=== PATIENT | female | born 1990 | race Caucasian/White ===

== ENCOUNTER 2020-07-23 01:17 | Outpatient (CLI) | payer BC, OTHER, SELFPAY ==
[2020-07-23 18:46] LABS: SARS-CoV-2 RNA PCR Negative
== END 2020-07-23 01:18 | disposition home or self-care (01) ==
LOC: ANHCOVIDDT 01:19
PROVIDERS: PCP Family Medicine; Visit Provider Obstetrics & Gynecology
DX: Z01.812 Encounter for preprocedural laboratory examination (principal); Z20.822 Contact with and (suspected) exposure to COVID-19
CPT/HCPCS: C9803; U0003; U0005

== ENCOUNTER 2020-07-26 00:47 | Day surgery (SDC) | payer BC, SELFPAY ==
[2020-07-22 13:07] VITALS: BMI 26.6
--- NOTE | 2020-07-25 11:57 | WPDANESEPPF ---
Anes - Initial Pre Proc Eval Procedure: Operation Date: 07/26/20 13:00 Proposed Procedures p Suction Dilation And Curettage - Jc Avila MD Date/Time: 07/25/20 11:57 Surgeon: Jc Avila MD Pre Op Diagnosis: Missed AB Patient Data Age: 30 Gender: F Height: 1.73 m Weight: 79.4 kg Allergies Allergy/AdvReac Type Severity Reaction Status Date / Time No Known Allergies Allergy Unverified 07/26/20 11:04 Home Medications Medication Instructions Recorded Confirmed Type vit no.[id number] 1 tablet PO DAILY 07/26/20 07/26/20 History [Classic ] Patient hx anesthesia problems: none Family hx anesthesia problems: none PMFSH Past Medical History Medical History (Updated 07/25/20 @ 23:11 by Jc Avila MD) Anxiety Overweight (BMI 25.0-29.9) Surgical History Surgical History History of delivery Social History Social History Smoking status: Never smoker Alcohol intake: current Drinks per week: 2 Living arrangements: with family Spiritual care concerns: No Anes - Eval Final PreProcedure Day of Procedure 07/25/20 11:57 Patient weight: overweight Heart: regular rate and rhythm Lungs: clear to auscultation and normal air movement Airway: Mallampati scale class II Neurological: alert and oriented Last oral intake: >/= 8 hours ASA classification: II Emergent: no Anesthetic plan: proceed Anesthesia type and monitoring: general GIVS and LMA Informed Consent: The patient's anesthetic plan and its attendant risks and benefits were discussed with the patient/family/POA. Questions were solicited and answers provided to the satisfaction of the patient/family/POA.
--- NOTE | 2020-07-25 23:04 | P.HP_ITS ---
H&P: HPI History of Present Illness Date/Time: 07/25/20 23:04 Chief Complaint: Miscarriage Narrative: 30 y/o with LMP 06/26/20, and this was about a week late. She did not experience any full flow, so she had an hCG level on 07/07/20. This was 30, with a progesterone value of only 0.19. On 07/11, her hCG was 26.5. On 07/13/20 it was 34. On 07/18/20 it was 42.5. And on 07/20/20 it was 57.8. She has had some intermittent bright red bleeding. She has no cramping. Her blood type is Apos. Because of her abnormally rising hCG levels, I have offered a suction D&C. Review of Systems Review of Systems: All systems reviewed & are unremarkable except as noted in HPI and below PMFSH Past Medical History Medical History (Updated 07/25/20 @ 23:11 by Jc Avila MD) Anxiety Overweight (BMI 25.0-29.9) Surgical History Surgical History History of delivery Social History Social History Smoking status: Never smoker Alcohol intake: current Drinks per week: 2 Spiritual care concerns: No Meds Home Medications and Allergies Home Medications Medication Instructions Recorded Confirmed Type No Home Medications 07/22/20 07/22/20 History Allergies Allergy/AdvReac Type Severity Reaction Status Date / Time No Known Allergies Allergy Unverified 07/22/20 12:54 Exam Const: Orientation/consciousness: patient oriented x3 Other: Well- developed, well-nourished female in no acute distress. Neck: Thyroid: thyroid normal Lymphatic: no lymphadenopathy noted (in neck, axilla or inguinal nodes) Resp: Effort & Inspection: normal respiratory effort Auscultation: clear to auscultation bilaterally Cardio: Rate: regular rate Rhythm: regular rhythm Heart sounds: S1 normal heart sound present and S2 normal heart sound present GI: Other: ABD: Soft, nontender, nondistended. No guarding or rebound tenderness. No hepatosplenomegaly. : General: Yes no CVA tenderness Other: Deferred to OR Back/Spine/Pelvis: Back: no CVA tenderness Skin: General skin exam: normal color and no rashes or lesions noted Neuro: General: patient oriented x3 Extrem: Other: Extremities: nontender with no edema Psych: Mental Status: mental status grossly normal Affect: normal affect Assessment and Plan Assessment and plan (1) Spontaneous : Code(s): O03.9 - Complete or unspecified spontaneous without complication Status: Acute Assessment and Plan: Because of the gradually, abnormally increasing hCG levels, I have offered surgical management. If there is no suggestion of intrauterine products of conception, we may consider treatment for ectopic gestation. She understands risks of surgery to include risks of anesthesia, risks of pain, infection, bleeding, blood products, thromboembolic phenomena and damage to adjacent structures such as bowel, bladder, ureters, blood vessels and nerves. She u nderstands all these risks and elects to proceed with dilation and suction curettage.
[2020-07-26 11:02] VITALS: BP 136/78; PULSE 81; RESP 16; TEMP 36.5; O2SAT 100
[2020-07-26] MEDS: ACETAMINOPHEN 500 MG TABLET 1000 MG PO (11:02)
[2020-07-26] MEDS: LACTATED RINGERS 1,000 ML 30 ML IV CONT (11:35)
--- NOTE | 2020-07-26 11:55 | WPDHPUPDATE1 ---
History and Physical Update Update Date/Time: 07/26/20 11:55 History and Physical has been reviewed, including an updated exam of the patient. There are NO changes in the patient's condition. Risks, benefits, and alternatives have been discussed and questions answered. Patient agrees to proceed with procedure.
[2020-07-26] MEDS: KETOROLAC 30 MG/ML VIAL (*BKC) IV PUSH (13:05)
[2020-07-26] MEDS: LIDOCAINE HCL 1% LOCAL INJ 20 ML VIAL 12 ML INFILTRATE (13:07)
--- NOTE | 2020-07-26 13:11 | PM.PROC ---
Procedure Note - Detailed Date of procedure: 07/26/20 Pre-op diagnosis: Missed AB Missed SAB Post-op diagnosis: other (Possible ectopic gestation) Procedure performed: Dilation and suction curettage Description of procedure: The patient was taken to the operating room where she was prepared and draped in the usual sterile fashion in the dorsal lithotomy position. The bladder was drained with a red rubber catheter. A sterile speculum was placed into the vagina. The anterior lip of the cervix was grasped with a single-tooth tenaculum. Ten mL of 1% lidocaine was administered in a paracervical block. The cervix was gently dilated using Hegar dilators until an 8mm dilator could be passed. The 8mm curved tip suction curette was advanced. Suction curettage was performed and no obvious products of conception were aspirated. Sharp curettage was then performed until a good uterine cry was noted. A final pass with the suction curette was made. The tenaculum was removed. Hemostasis was excellent. Sponge, lap, needle and instrument counts were correct. The patient was taken to the recovery room in stable condition. I was present and scrubbed for the entire procedure. Plan to administer methotrexate in postop recovery room. Implants: None Anesthesia: MAC and local (paracervical block) Surgeon: Jc Avila MD Estimated blood loss (mL): 20 Drains: No Packing: No Pathology: yes (endometrial curettings) Complications: None Condition: stable Disposition: PACU Findings: Scant endometrial curettings noted.
[2020-07-26 13:12] VITALS: BP 122/77; PULSE 92; RESP 20; O2SAT 100
[2020-07-26 13:45] VITALS: BP 134/88; PULSE 69; RESP 20
[2020-07-26] MEDS: METHOTREXATE SODIUM/PF 50 MG/2 ML VIAL 48.5 MG IM ×2 (13:53)
[2020-07-26] MEDS: oxyCODONE HCL (*CRX) 5 MG TAB IR PO (14:13)
[2020-07-26 14:15] VITALS: BP 128/72; PULSE 70; RESP 20
[2020-07-26 14:45] VITALS: BP 132/68; PULSE 78; RESP 20
== END 2020-07-26 14:55 | disposition home or self-care (01) ==
PROVIDERS: PCP Family Medicine; Visit Provider Obstetrics & Gynecology
PROC: (CPT 59820; principal; 2020-07-26 13:00)
DX: O02.1 Missed abortion (principal)
CPT/HCPCS: 59820; 88305; A9270; J1885; J2250; J2405; J2704; J3010; J7120; J9260

== ENCOUNTER 2021-04-22 02:13 | Emergency (ER) | payer BC, SELFPAY ==
[2021-04-22 02:24] VITALS: BP 110/87; PULSE 66; RESP 17; TEMP 36.2; O2SAT 100
[2021-04-22 02:41] LABS: Basophils Absolute Auto 0.1 K/mm3 (0.0-0.1); Basophils Percent Auto 0.7 % (0.2-1.2); Eosinophils Absolute Auto 0.2 K/mm3 (0-0.3); Eosinophils Percent Auto 1.6 % (0-4.4); Hematocrit 35.8 % (37.0-47.0); Hemoglobin 12.1 g/dL (12.0-15.0); Immature Granulocyte Absolute 0.04 K/mm3 (0.00-0.031); Immature Granulocyte Percent A 0.3 % (0-0.5); Lymphocytes Absolute Auto 2.69 K/mm3 (0.9-3.2); Lymphocytes Percent Auto 22.1 % (18.3-44.2); Mean Corpuscular HGB Conc 33.8 g/dl (32-36); Mean Corpuscular Hemoglobin 32.1 pg (26-34); Mean Platelet Volume 10.6 fl (7.4-10.4); Monocytes Absolute Auto 0.9 K/mm3 (0.1-0.6); Neutrophils Absolute Auto 8.3 K/mm3 (1.3-6.7); Neutrophils Percent Auto 68.3 % (45.5-73.1); Platelet Count Result 182 k/mm3 (150-375); Red Blood Count 3.77 M/mm3 (4.2-5.4); Red Cell Distribution Width 12.5 % (11.5-14.5); White Blood Count 12.2 K/mm3 (4.5-10.0)
[2021-04-22 02:57] LABS: Add Urine Microscopic? YES; Appearance Urine Cloudy (Clear); Bacteria Urine 3+ /hpf; Bilirubin Urine Negative (Negative); Blood Urine 3+ (Negative); Color Urine Amber (Yellow); Glucose Urine UA Negative (Negative); Ketones Urine 1+ mg/dL (Negative); Leukocyte Esterase Ur Negative LEU/UL (Negative); Mucus Urine Moderate /lpf; Nitrate Urine Negative (Negative); Protein Urine 2+ mg/dL (Negative); RBC Urine >75 /hpf (0-2); Specific Grav Ur 1.026 (1.001-1.035); Squamous Epithelial Cell Urine Many /hpf (Few); Urobilinogen Urine Negative mg/dL (<2.0); WBC Urine 31-50 /hpf
[2021-04-22 03:25] LABS: Alanine Aminotransferase 18 U/L (4-35); Alkaline Phosphatase 59 U/L (38-126); Anion Gap 10 mmol/L (8-16); Aspartate Amino Transferase 19 U/L (14-36); Bilirubin,Total 0.3 mg/dL (0.2-1.3); Blood Urea Nitrogen 8 mg/dL (7-17); Calcium 9.2 mg/dL (8.4-10.2); Carbon Dioxide 22 mmol/L (22-30); Chloride 105 mmol/L (98-107); Estimated Glomerular Filt Rate > 60; Glucose 120 mg/dL (65-110); Lipase 72 U/L (23-300); Potassium 3.5 mmol/L (3.4-5.0); Sodium 137 mmol/L (137-145)
[2021-04-22 03:39] VITALS: BP 152/75; PULSE 72; RESP 20; O2SAT 100
[2021-04-22] MEDS: ONDANSETRON INJ 4 MG/2 ML VIAL IV PUSH (04:43)
[2021-04-22 04:46] VITALS: BP 121/80; PULSE 64; RESP 18; O2SAT 100
--- NOTE | 2021-04-22 06:35 | ED.ABDPAIN ---
HPI - Abdominal Pain General Chief Complaint: Abdominal Pain Stated Complaint: 14 weeks preg, left abd pain Time Seen by Provider: 04/22/21 03:36 Source: patient Mode of arrival: ambulatory Limitations: no limitations History of Present Illness HPI narrative: This is a 31 year old female with history of kidney stones who presents for evaluation of left flank pain. She reports she had pain early yesterday but her pain resolve. Her pain returned around 2 am. She reports pain is coming and going and she also feels pain in her lower back. She denies vomiting, fever, or chills. She reports increased urinary frequency but that is likely due to being . She has also noticed her urine is darker than usual. She denies vaginal bleeding. She took 1 tylenol a few hours ago. She rates current pain at 7/10. She reports having US for this to show IUP. Related Data Home Medications Medication Instructions Recorded Confirmed vit no.[id number] 1 tablet PO DAILY 07/26/20 07/26/20 [Classic ] Allergies Allergy/AdvReac Type Severity Reaction Status Date / Time No Known Allergies Allergy Unverified 07/26/20 11:04 Review of Systems Review of Systems: All systems reviewed & are unremarkable except as noted in HPI and below PMFSH Past Medical History Medical History Anxiety Overweight (BMI 25.0-29.9) Surgical History Surgical History History of delivery Social History Social History Smoking status: Never smoker Alcohol intake: current Drinks per week: 2 Spiritual care concerns: No Exam Const: General: no acute distress and alert Orientation/consciousness: patient oriented x3 Eyes: Pupils: Equal, round and reactive pupils present EOM: EOMs intact bilaterally Chest: Chest palpation & inspection: normal inspection of the chest Resp: Effort & Inspection: normal respiratory effort and no retractions Auscultation: clear to auscultation bilaterally Cardio: Rate: regular rate Rhythm: regular rhythm Heart sounds: no murmurs GI: GI Palp: Yes Soft to palpation, No Tenderness to palpation present (GI) and No Guarding due to palpation present (GI) Auscultation: normal bowel sounds : General: Yes no CVA tenderness Skin: General skin exam: normal color Rashes: no rashes Neuro: General: patient oriented x3, moves all extremities and CN's II-XI intact bilaterally Extrem: General: normal to inspection Psych: Mental Status: mental status grossly normal Affect: normal affect Course Reevaluation(s) Reevaluation #1: PAtient reports she feels better after tylenol . This is likely a kidney stone. She is comfortable with discharge home with pain medication and antibiotics vs admission for pain control. I performed bedside US good movement and heart tones. I spoke with Dr. Avila who agrees patient can be discharged if she feels comfortable. Date: 04/22/21 Time: 06:41 Vital Signs Vital signs: Vital Signs Temperature 97.1 F L 04/22/21 02:24 Pulse Rate 66 04/22/21 02:24 Respiratory Rate 17 04/22/21 02:24 Blood Pressure 110/87 04/22/21 02:24 Pulse Oximetry 100 04/22/21 02:24 Temperature 97.1 F L 04/22/21 02:24 Pulse Rate 80 04/22/21 07:11 Respiratory Rate 16 04/22/21 07:11 Blood Pressure 115/78 04/22/21 07:11 Pulse Oximetry 99 04/22/21 07:11 MDM - Abdominal Pain Lab Data Attestation: I reviewed the patient's lab results. Result diagrams: 04/22/21 02:30 04/22/21 02:30 Labs: Lab Results 04/22/21 04/22/21 04/22/21 Range/Units 02:30 02:30 02:41 WBC 12.2 H (4.5-10.0) K/mm3 RBC 3.77 L (4.2-5.4) M/mm3 Hgb 12.1 (12.0-15.0) g/dL Hct 35.8 L (37.0-47.0) % MCV 95.0 (80-100) fl MCH 32.1
[2021-04-22 07:11] VITALS: BP 115/78; PULSE 80; RESP 16; O2SAT 99
== END 2021-04-22 07:12 | disposition home or self-care (01) ==
PROVIDERS: Emergency Provider General Practice; PCP Family Medicine
DX: O23.42 Unspecified infection of urinary tract in pregnancy, second trimester (principal); O26.892 Other specified pregnancy related conditions, second trimester; R10.9 Unspecified abdominal pain; O99.282 Endocrine, nutritional and metabolic diseases complicating pregnancy, second trimester; E66.3 Overweight; Z87.442 Personal history of urinary calculi; Z3A.14 14 weeks gestation of pregnancy
CPT/HCPCS: 36415; 80053; 81001; 81025; 83690; 85025; 87086; 87088; 96374; 96375; 99284; J0131; J0696; J2405

== ENCOUNTER 2021-10-10 11:25 | Outpatient (CLI) | payer BC, SELFPAY ==
[2021-10-10 11:50] LABS: Hematocrit 37.6 % (37.0-47.0); Hemoglobin 12.4 g/dL (12.0-15.0); Mean Corpuscular Hemoglobin 30.6 pg (26-34); Mean Corpuscular Volume 92.8 fl (80-100); Mean Platelet Volume 11.4 fl (7.4-10.4); Platelet Count Result 202 k/mm3 (150-375); Red Blood Count 4.05 M/mm3 (4.2-5.4); Red Cell Distribution Width 13.7 % (11.5-14.5); White Blood Count 10.9 K/mm3 (4.5-10.0)
[2021-10-11 12:23] LABS: Rapid Plasma Reagin Non-Reactive (NonReactive)
== END 2021-10-10 11:26 | disposition home or self-care (01) ==
LOC: ANHLAB 11:28
PROVIDERS: PCP Family Medicine; Visit Provider Obstetrics & Gynecology
DX: Z01.818 Encounter for other preprocedural examination (principal)
CPT/HCPCS: 36415; 85027; 86592; 86850; 86900; 86901

== ENCOUNTER 2021-10-11 09:54 | Inpatient (IN) | payer BC, SELFPAY ==
[2021-10-11] VITALS (48 sets, daily range): BP systolic 107–132; BP diastolic 51–108; PULSE 63–159; RESP 17–20; TEMP 36.3–37.2; O2SAT 98–100; BMI 30.2
--- NOTE | 2021-10-11 10:14 | LDADM ---
This patient, Rob Adam, was admitted to Labor/Delivery/Recovery 120 on 10/11/21 at 09:54. Plans for labor, pain management and were discussed with patient. Patient/family oriented to hospital policies and general routines including ID bracelet, bed and alarms, visiting hours, pain management, procedures, bathroom and other care routines, personal items, smoking policy, room service/diet and guest tray routines, infant security routines, and visiting hours. Patient/Family are encouraged to report perceived risks to care and to ask questions if they do not understand what they are told or what they should do. See [facility]BIX for further documentation.
[2021-10-11] MEDS: LACTATED RINGERS 1,000 ML 125 ML IV CONT ×2 (10:22→11:31)
--- NOTE | 2021-10-11 11:52 | WPDANESEPPF ---
Anes - Initial Pre Proc Eval Procedure: Operation Date: 10/11/21 12:00 Proposed Procedures p Repeat Section - Jc Avila MD Date/Time: 10/11/21 11:52 Surgeon: Jc Avila MD Pre Op Diagnosis: C/S Patient Data Age: 31 Gender: F Height: 1.73 m Weight: 90 kg Last Vital Signs Temp 36.3 C L 10/11/21 11:00 Pulse 87 10/11/21 11:45 BP 120/78 10/11/21 11:45 Allergies Allergy/AdvReac Type Severity Reaction Status Date / Time No Known Allergies Allergy Unverified 07/26/20 11:04 Home Medications Medication Instructions Recorded Confirmed Type vit no.[id number] 1 tablet PO DAILY 07/26/20 10/11/21 History [Classic ] loratadine [Claritin] 10 mg PO DAILY PRN 09/20/21 09/20/21 History Patient hx anesthesia problems: none Family hx anesthesia problems: none Results Review: All pre-operative results and documents have been reviewed as part of the pre-operative evaluation. [facility] Past Medical History Medical History Anxiety Overweight (BMI 25.0-29.9) Surgical History Surgical History History of delivery Family History Family History Father Hypertension Mother Hypertension Social History Social History Smoking status: Never smoker Alcohol intake: current Drinks per week: 2 Substance use: never Spiritual care concerns: No Anes - Eval Final PreProcedure Day of Procedure 10/11/21 11:52 Patient weight: overweight Heart: regular rate and rhythm Lungs: clear to auscultation Airway: Mallampati scale class II Neurological: alert and oriented ASA classification: II Emergent: no Anesthetic plan: proceed Anesthesia type and monitoring: regional spinal and standard monitoring Results Review: All pre-operative results and documents have been reviewed as part of the pre-operative evaluation. Informed Consent: The patient's anesthetic plan and its attendant risks and benefits were discussed with the patient/family/POA. Questions were solicited and answers provided to the satisfaction of the patient/family/POA.
--- NOTE | 2021-10-11 12:02 | PM.IMHP ---
H&P: HPI History of Present Illness Date/Time: 10/11/21 12:02 31 y/o at 39 1/7 weeks here for repeat . GBS neg. Good movement. Occasional contractions. Chief Complaint: Here for c section Review of Systems Review of Systems: All systems reviewed & are unremarkable except as noted in HPI and below PMFSH Past Medical History Medical History Anxiety Overweight (BMI 25.0-29.9) Surgical History Surgical History (Updated 10/11/21 @ 12:04 by Jc Avila MD) History of delivery Family History Family History Father Hypertension Mother Hypertension Social History Social History Smoking status: Never smoker Alcohol intake: current Drinks per week: 2 Substance use: never Spiritual care concerns: No Meds Home Medications and Allergies Home Medications Medication Instructions Recorded Confirmed Type vit no.[id number]-[id number] 1 tablet PO DAILY 07/26/20 10/11/21 History [Classic ] loratadine [Claritin] 10 mg PO DAILY PRN 09/20/21 09/20/21 History Allergies Allergy/AdvReac Type Severity Reaction Status Date / Time No Known Allergies Allergy Unverified 07/26/20 11:04 Vital Signs Vital Signs - 24 hr 10/11/21 10:20 10/11/21 10:30 10/11/21 10:45 Temperature Pulse Rate 85 89 80 Blood Pressure 132/89 112/98 H 124/76 10/11/21 11:00 10/11/21 11:15 10/11/21 11:30 Temperature 36.3 C L Pulse Rate 84 77 78 Blood Pressure 119/77 129/76 127/78 10/11/21 11:45 10/11/21 12:00 Temperature Pulse Rate 87 85 Blood Pressure 120/78 126/76 Exam Const: Orientation/consciousness: patient oriented x3 Other: Well-developed, well-nourished female in no acute distress. Neck: Thyroid: thyroid normal Lymphatic: no lymphadenopathy noted (in neck, axilla or inguinal nodes) Resp: Effort & Inspection: normal respiratory effort Auscultation: clear to auscultation bilaterally Cardio: Rate: regular rate Rhythm: regular rhythm Heart sounds: S1 normal heart sound present and S2 normal heart sound present GI: Other: ABD: Soft, nontender, nondistended, gravid. NST reactive. TOCO: irregular contractions. No guarding or rebound tenderness. No hepatosplenomegaly. : General: Yes no CVA tenderness Other: Cervix closed / 50 Back/Spine/Pelvis: Back: no CVA tenderness Skin: General skin exam: normal color and no rashes or lesions noted Neuro: General: patient oriented x3 Extrem: Other: Extremities: nontender with no edema Psych: Mental Status: mental status grossly normal Affect: normal affect Assessment and Plan Assessment and plan (1) History of delivery: Code(s): Z98.891 - History of uterine scar from previous surgery Status: Inactive Assessment and Plan: A: IUP at 39 1/7 weeks with prior , desires repeat. P: Plan repeat low transverse delivery. She understands risks of surgery to include risks of anesthesia, risks of pain, infection, bleeding, blood products, thromboembolic phenomena and damage to adjacent structures such as bowel, bladder, ureters, blood vessels and nerves. She understands all these risks and elects to proceed with surgery.
--- NOTE | 2021-10-11 12:05 | WPDHPUPDATE1 ---
History and Physical Update Update Date/Time: 10/11/21 12:05 History and Physical has been reviewed, including an updated exam of the patient. There are NO changes in the patient's condition. Risks, benefits, and alternatives have been discussed and questions answered. Patient agrees to proceed with procedure.
[2021-10-11] MEDS: KETOROLAC 30 MG/ML VIAL (*BKC) 15 MG IV PUSH (12:39)
[2021-10-11] MEDS: OXYTOCIN 30 UNITS/NS 500 ML 30 UNITS/500 ML BAG 125 UNITS IV CONT (13:42)
--- NOTE | 2021-10-11 14:47 | P.PCNOB_ITS ---
OB - Delivery Note Procedure Delivery date: 10/11/21 Procedure: Procedures Operation Date: 10/11/21 12:00 Actual Procedure Side Surgeon p Repeat Section Jc Avila MD Delivery monitor: External FHT and External Uterine Route of delivery: (Repeat LTCS) Specimen: Yes (cord blood) Quantitative Blood Loss (ml): 690 Anesthesia type: Spinal Disposition: PACU Complications: None Narrative: The patient was taken to the operating room where she was prepared and draped in the usual sterile fashion in dorsal supine position with a leftward tilt. She received cefazolin preoperatively. Spinal anesthesia was found to be adequate. A Pfannenstiel skin incision was made along the previous scar line and was carried through to the underlying layer of the fascia. The f ascia was incised in the midline and the incision was extended laterally. The fascia was dissected free of the underlying rectus muscles. The rectus muscles were in the midline. The peritoneum was identified, tented up and entered sharply. The peritoneal incision was extended superiorly and inferiorly with good visualization of the bladder. The bladder blade was placed. The vesicouterine peritoneum was identified, tented up and entered sharply. The incision was extended laterally and the bladder flap was developed. The bladder blade was replaced. The uterus was then incised sharply in a transverse fashion along the lower uterine segment. The incision was extended laterally. The infant's head was delivered atraumatically to the sterile field, followed by the body. The nose and mouth were bulb suctioned. After a delay, the cord was clamped and cut. The was handed off the field. Cord blood was collected. The placenta was removed manually and was passed off the field. The uterus was exteriorized and cleared of all clots and debris. Adhesions between the uterine serosa and the pelvic sidewall were carefully lysed. The uterine incision was reapproximated using 0 Monocryl in a running, locked fashion. Excellent hemostasis resulted as did excellent reapproximation of the normal anatomy. The uterus was returned the abdomen. The pelvis was irrigated copiously with warmed normal saline. Rigorous hemostasis was assured. The fascial layer was reapproximated using 0 Vicryl in a running fashion. The skin was closed with a running, subcuticular stitch of 4 0 Vicryl. Dermaflex was applied externally. Sponge, lap, needle and instrument counts were correct. The patient was taken to the recovery room in stable condition. The infant went to the nursery in stable condition. I was present and scrubbed the entire procedure. [facility] Date of : 10/11/21 Time of : 12:39 Weeks of gestation at delivery: 39 Infant gender: Female Weight (pounds): 9 Weight (ounces): 6 presentation: vertex Placenta delivery description: Manual Removal and Normal Configuration Cord Vessel Description: 3 Vessels and Delayed Cord Clamping score one minute: 9 score five minutes: 9
--- NOTE | 2021-10-11 14:53 | PM.OBDSVD ---
DS: Admitting Diagnosis Discharge Date 10/13/21 Admitting Diagnosis IUP at 39 1/7 Prior DS: Discharge Diagnosis Discharge Diagnosis (1) delivery delivered: Code(s): O82 - Encounter for delivery without indication Status: Acute OB - DS: Summary OB Procedures : NST OB Procedures Intrapartum: OB Procedures: : None Peripartum Data Procedures: Procedures Operation Date: 10/11/21 12:00 Actual Procedure Side Surgeon p Repeat Section Jc Avila MD Discharge Plan Discharge Attending physician on discharge: Jc Avila Discharging Clinician: Jc Avila Patient Disposition: Home, Self-Care Activity: may shower, may drive after 2 weeks and pelvic rest Diet: regular Wound Care Instructions: incision open to air Discharge Instructions: Call or return if temperature above 100.4? F, increased abdominal pain, increased vaginal bleeding or any new problems. Education: Mom and Baby Guide and Preeclampsia Handout Given to: Mother Follow-Up: Call your delivering provider's office for an appointment to be seen in: 1 Week Mom and baby should come to the [facility] for the follow-up appointment. Appointment Date/Time: October 16, 2021 at 11:00 am What to expect at your follow-up visit: Physical Assessment Call [phone] if you are unable to keep your appointment time. BREAST CARE: * Wear a snug supportive bra. * For engorgement discomfort: Breast Feeding: * Apply warm moist washcloths * Express milk as needed to relieve engorgement * Wear loose clothing * For sore nipples: * Identify correct latch-on * Apply warm moist washcloths before and after nursing * Air dry nipples after nursing * May apply Lansinoh cream to nipples ABDOMINAL INCISION: (if applicable) * Allow incision to air dry * Do NOT use lotions for powders on your incision * When showering, allow soap and water to run over the incision, but do not wash incision EPISIOTOMY/PERINEAL CARE: * Until bleeding stops, use your haley bottle after urinating * Change your pad frequently throughout the day * No tub baths until seen by your physician - You may shower ACTIVITY: * Rest as much as possible. * Do not exercise or lift anything heavier than your baby (such as laundry or other children.) * Avoid stairs or driving as much as possible. * Do not put anything into the vagina. No douching, tampons, or sexual activity until seen by physician. NOTIFY PHYSICIAN IF YOU HAVE ANY QUESTIONS OR IF ANY OF THE FOLLOWING SYMPTOMS OCCUR: * If your incision becomes red, swollen, or more painful than what you have experienced in the hospital. * If your vaginal bleeding becomes foul smelling. * If your vaginal bleeding becomes more heavy than a period or if your bleeding changes from pink to bright red. However, you may pass an occasional walnut-sized clot once or twice for the first week . * If you experience a sharp, shooting pain in you calves. * If you discover a hard, reddened area on your breast or if you experience flu-like symptoms. DIET: * Eat regular, well-balanced meals. * Drink plenty of fluids daily. If , drink to thirst. Stand Alone Forms: General Discharge Information Follow-up/Referrals: Jc Avila MD [Physician] - 4 Weeks Discharge Medications: New ibuprofen 600 mg tablet 600 mg PO Q6H PRN (Reason: cramps) Qty: 30 RF: 0 hydrocodone-acetaminophen 5-325 mg tablet 1 - 2 tablet PO Q6H Qty: 30 RF: 0 ferrous sulfate 325 mg (65 mg iron) tablet 325 mg PO DAILY Qty: 30 RF: 0 Continued Classic 28 mg iron- 800 mcg Tablet 1 tablet PO DAILY RF: 0 loratadine [Claritin] 10 mg Tablet 10 mg PO DAILY PRN (Reason: Congestion) RF: 0 Date of admission: 10/11/21 09:54 Primary Care Provider: Nate
[2021-10-11] MEDS: HYDROcodone/acetaminophen (*CRX) 10-325 MG TABLET 1 TAB PO ×2 (17:04→21:30)
[2021-10-11] MEDS: DEXTROSE 5%/0.45% SOD CHL 1,000 ML 125 ML IV CONT (18:00)
[2021-10-11] MEDS: IBUPROFEN 600 MG TABLET PO (21:29)
[2021-10-11] MEDS: DOCUSATE SODIUM 100 MG CAPSULE PO (21:29)
[2021-10-11] MEDS: SIMETHICONE 80 MG TAB.CHEW PO (21:29)
[2021-10-11] MEDS: LANOLIN (LANSINOH) 7.5 GM CREAM 1 APPLIC TOPICAL (21:30)
[2021-10-12] VITALS: BP 123/79; PULSE 90; RESP 18; TEMP 36.7
[2021-10-12 04:00] VITALS: BP 119/72; PULSE 94; RESP 18; TEMP 36.6
[2021-10-12] MEDS: SIMETHICONE 80 MG TAB.CHEW PO ×4 (04:24→19:45)
[2021-10-12] MEDS: IBUPROFEN 600 MG TABLET PO ×3 (04:25→19:45)
[2021-10-12 05:19] LABS: Basophils Percent Auto 0.3 % (0.2-1.2); Eosinophils Absolute Auto 0.2 K/mm3 (0-0.3); Eosinophils Percent Auto 1.3 % (0-4.4); Hematocrit 30.2 % (37.0-47.0); Hemoglobin 9.9 g/dL (12.0-15.0); Immature Granulocyte Percent A 0.9 % (0-0.5); Lymphocytes Absolute Auto 1.36 K/mm3 (0.9-3.2); Lymphocytes Percent Auto 11.6 % (18.3-44.2); Mean Corpuscular HGB Conc 32.8 g/dl (32-36); Mean Corpuscular Hemoglobin 31.1 pg (26-34); Mean Platelet Volume 11.3 fl (7.4-10.4); Monocytes Percent Auto 8.9 % (2.6-8.5); Platelet Count Result 144 k/mm3 (150-375); Red Blood Count 3.18 M/mm3 (4.2-5.4); Red Cell Distribution Width 13.5 % (11.5-14.5); White Blood Count 11.7 K/mm3 (4.5-10.0)
--- NOTE | 2021-10-12 07:48 | WPDANLDPN2 ---
Anes-Prog Note L&D Date/Time: 10/12/21 07:48 Comfortable throughout: section Neuraxial method: spinal Epidural/Spinal procedure site: clean & non-tender Neuro status: Neuro function grossly intact. Cardiovascular status: normal Respiratory status: normal Airway patency: baseline Mental status: baseline Post-Op hydration status: normal Vital Signs: Last Vital Signs Temp 36.6 C 10/12/21 04:00 Pulse 94 10/12/21 04:00 Resp 18 10/12/21 04:00 BP 119/72 10/12/21 04:00 Pulse Ox 98 10/11/21 16:00 Pain score (VAS): 3/10 I/O: Intake & Output 10/11/21 10/11/21 10/12/21 15:59 23:59 07:59 Intake Total 9826 706 2242 Output Total 2113 583 3720 Balance -240 580 540 Post-procedural complaints: pruritis mild, no treatment Patient feedback: Patient satisfied with anesthetic care.
--- NOTE | 2021-10-12 07:49 | WPDANLDNPN2 ---
Anes-Prog Note L&D-Neuraxial Date/Time: 10/12/21 07:49 Neuraxial medications: intrathecal PF morphine Opiod-related complaints: pruritis mild, no treatment Patient feedback: Patient satisfied with post-operative pain management.
[2021-10-12 08:25] VITALS: BP 117/70; PULSE 92; RESP 16; TEMP 36.3; O2SAT 100
[2021-10-12] MEDS: POLYSACCHARIDE IRON COMPLEX 150 MG CAPSULE PO ×2 (09:23→17:46)
[2021-10-12] MEDS: HYDROcodone/acetaminophen (*CRX) 10-325 MG TABLET 1 TAB PO (09:24)
[2021-10-12] MEDS: MULTIVIT/MIN/PREN/FOL AC/IRON TABLET 1 TAB PO (09:24)
[2021-10-12] MEDS: DOCUSATE SODIUM 100 MG CAPSULE PO ×2 (09:24→17:46)
[2021-10-12 12:11] VITALS: BP 133/79; PULSE 104; RESP 18; TEMP 36.9; O2SAT 100
[2021-10-12 13:50] VITALS: TEMP 36.1
--- NOTE | 2021-10-12 14:49 | PC.NURSE ---
0735 - Mother verbalizes she is able to independently latch with appropriate positioning/alignment. She denies any nipple discomfort and is responsively . Infant is currently meeting outcomes for weight, output, jaundice and feeding frequencies of 8-12 times in 24 hours. Mother declines any additional assistance/education at this time and is optimally latched effectively in a cradle position without pain. Mother is encouraged to call for assistance if her doesn?t latch or there is discomfort with latching. Mother voiced understanding of information shared and mom and baby guide reviewed for additional resource information . Reported to the primary RN.
[2021-10-12 19:40] VITALS: BP 130/78; PULSE 116; RESP 16; TEMP 37.4
[2021-10-12] MEDS: HYDROcodone/acetaminophen (*CRX) 5-325 MG TABLET 1 TAB PO (19:46)
[2021-10-13 08:00] VITALS: BP 129/82; PULSE 101; RESP 19; TEMP 37; O2SAT 100
[2021-10-13] MEDS: IBUPROFEN 600 MG TABLET PO (09:02)
[2021-10-13] MEDS: DOCUSATE SODIUM 100 MG CAPSULE PO (09:02)
[2021-10-13] MEDS: POLYSACCHARIDE IRON COMPLEX 150 MG CAPSULE PO (09:02)
[2021-10-13] MEDS: MULTIVIT/MIN/PREN/FOL AC/IRON TABLET 1 TAB PO (09:02)
--- NOTE | 2021-10-13 13:20 | PM.OBPNVD ---
OB - PN: Subj Subjective Date/time seen: 10/13/21 13:20 Narrative: Pain OK. Tolerating diet. Would like to go home. OB - PN: Obj Data Labs CBC & Chem 7: 10/12/21 04:21 OB - PN A/P Plan Comments: A: POD#2, doing well. P: Home to f/u 4 weeks. Exam Narrative: AVSS ABD soft, nontender, fundus firm. Incision c/d/i. EXT nontender
--- NOTE | 2021-10-13 14:39 | PC.NURSE ---
Patient viewed the discharge video [facility] Baby [facility], The First Two Weeks . Patient was given the opportunity and encouraged to ask questions. Patient verbalized understanding of information shared and has been given the mother/baby guide for home reference.
[2021-10-16 11:30] VITALS: BP 122/84; PULSE 77; RESP 16; TEMP 37.2; O2SAT 99
== END 2021-10-13 14:51 | disposition home or self-care (01) | DRG 788 ==
LOC: ANHLDR 14:54 → ANHOB2 16:27
PROVIDERS: Admitting Provider Obstetrics & Gynecology; PCP Family Medicine; Visit Provider Obstetrics & Gynecology
PROC: 10D00Z1 Extraction of Products of Conception, Low, Open Approach (ICD-10-PCS; CPT 59514; principal; 2021-10-11 12:00)
DX: O34.211 Maternal care for low transverse scar from previous cesarean delivery (principal); Z37.0 Single live birth; Z3A.39 39 weeks gestation of pregnancy
CPT/HCPCS: 36415; 85025; 85055; A9270; J0131; J1885; J2274; J2370; J2405; J2590; J7120

== ENCOUNTER 2021-11-09 02:24 | Emergency (ER) | payer BC, SELFPAY ==
--- NOTE | ~2021-11-09 | CT_ITS ---
EXAMINATION: CT abdomen pelvis wo con DATE: 11/09/2021 04:22 INDICATION: Right flank pain for 6 hours TECHNIQUE: Computed tomography (CT) of the abdomen and pelvis was performed without intravenous contr ast. Automated exposure control and iterative reconstruction technique were employed. Exam dose: 447 .77 mGy-cm total exam DLP. COMPARISON: None. FINDINGS: There is discoid scarring or atelectasis at the left lower lobe. The lower lung zones are c lear of infiltrate or consolidation. Normal heart size. No pericardial or pleural effusion. The liver, gallbladder, bile ducts, spleen, pancreatic duct, and adrenal glands are unremarkable. Pinpoint nonobstructing lower pole left renal calculus. There is right nephromegaly and multiple right hydronephrosis secondary to approximately 3 x 2 mm rig ht distal ureteral calculus. Normal caliber of the abdominal aorta. No intraperitoneal or retroperitoneal or pelvic mass lesion or adenopathy or ascites is noted. Normal appendix. No bowel obstruction, bowel wall thickening, pneumatosis or intraperitoneal free air . No suspicious osteolytic or osteoblastic lesions. IMPRESSION: 2 x 3 mm right ureteral calculus with moderately prominent right hydroureteronephrosis Pinpoint nonobstructing lower pole left renal calculus Reviewed, dictated and finalized at [facility]. Reviewed, dictated and finalized at [facility]. IMPRESSION: 2 x 3 mm right ureteral calculus with moderately prominent right h ydroureteronephrosis Pinpoint nonobstructing lower pole left renal calculus
[2021-11-09 02:25] VITALS: BP 125/74; PULSE 70; RESP 18; TEMP 36.6; O2SAT 99
[2021-11-09 03:33] LABS: Appearance Urine Clear (Clear); Bilirubin Urine Negative (Negative); Blood Urine 2+ (Negative); Color Urine Yellow (Yellow); Glucose Urine UA Negative (Negative); Ketones Urine Negative (Negative); Leukocyte Esterase Ur Negative LEU/UL (Negative); Nitrate Urine Negative (Negative); Protein Urine Trace mg/dL (Negative); Specific Grav Ur >= 1.030 (1.001-1.035); Urobilinogen Urine 0.2 mg/dL (<2.0)
--- NOTE | 2021-11-09 03:35 | ED.ABDPAIN ---
HPI - Abdominal Pain General Chief Complaint: Abdominal Pain Stated Complaint: possible kidney stone Time Seen by Provider: 11/09/21 03:35 Source: patient and family Mode of arrival: ambulatory Limitations: no limitations History of Present Illness HPI narrative: The patient is a 31-year-old female with a history of nephrolithiasis, 4 weeks , presenting to the emergency department for evaluation of right flank pain. Patient reports onset right flank pain early this morning. Patient reports dull, aching pain that radiation to the frontal abdomen. Patient reports nausea without vomiting. Denies fever or chills. Has had difficulty with urination and denies dysuria or hematuria. Patient reports history of nephrolithiasis in the past. She is not established with a urologist. Patient denies any frontal abdominal pain. Denies any significant headache. Denies any complications with her section delivery. Reports incision site is clean, dry and intact, nontender, nonpainful without drainage. Related Data Home Medications Medication Instructions Recorded Confirmed Classic 1 tablet PO DAILY 07/26/20 10/11/21 loratadine [Claritin] 10 mg PO DAILY PRN 09/20/21 09/20/21 Allergies Allergy/AdvReac Type Severity Reaction Status Date / Time No Known Allergies Allergy Verified 11/09/21 02:30 Review of Systems Review of Systems: CONSTITUTIONAL: Denies fever, chills, or sweats. EYES: Denies visual changes, redness, or discharge. ENT: Denies rhinorrhea, congestion, sore throat, or otalgia. CARDIOVASCULAR: Denies chest pain, palpitations, or edema. RESPIRATORY: Denies cough or dyspnea. GASTROINTESTINAL: Denies abdominal pain, reports nausea without vomiting GENITOURINARY: Reports hesitancy without dysuria or hematuria SKIN: Denies rash or itching. MUSCULOSKELETAL: Reports right flank pain, denies other joint pain, or myalgia. NEUROLOGIC: Denies headache, numbness, or weakness. PSYCHIATRIC: Denies anxiety or depression. [facility] Past Medical History Medical History (Updated 11/09/21 @ 06:50 by Joselin Isaacs MD) Anxiety delivery delivered Overweight (BMI 25.0-29.9) Surgical History Surgical History (Updated 10/11/21 @ 12:04 by Jc Avila MD) History of delivery Family History Family History Father Hypertension Mother Hypertension Social History Social History Smoking status: Never smoker Alcohol intake: current Drinks per week: 2 Substance use: never Spiritual care concerns: No Exam Narrative: GENERAL: Awake, alert, conversant HEAD: Normocephalic, atraumatic. EYES: PERRLA and EOMI. ENT: Nares clear, no rhinorrhea or epistaxis. Mucous membranes moist. NECK: Supple. CHEST: No respiratory distress, breathing even and non labored HEART: Regular rate, sinus rhythm ABDOMEN:Non distended, non tender in all 4 quadrants, no reproducible flank tenderness bilaterally EXTREMITIES: Normal range of motion. No edema. SKIN: Warm, dry, no rash. NEURO:No focal deficits. Alert and oriented x3 Course Vital Signs Vital signs: Vital Signs Temperature 36.6 C 11/09/21 02:25 Pulse Rate 70 11/09/21 02:25 Respiratory Rate 18 11/09/21 02:25 Blood Pressure 125/74 11/09/21 02:25 Pulse Oximetry 99 11/09/21 02:25 Temperature 36.6 C 11/09/21 02:25 Pulse Rate 70 11/09/21 02:25 Respiratory Rate 18 11/09/21 02:25 Blood Pressure 125/74 11/09/21 02:25 Pulse Oximetry 99 11/09/21 02:25 MDM - Abdominal Pain MDM Narrative Medical decision making narrative: Patient presenting for evaluation of right flank pain. At the time of assessment, ABCs are intact and vital signs are stable. Patient with mild right flank tenderness on exam. Given history and exam findings as concern for possible renal colic. Patient with evidence of blood in
[2021-11-09 03:39] LABS: Mucus Urine Heavy /lpf; RBC Urine >75 /hpf (0-2); Squamous Epithelial Cell Urine Rare /hpf (Few)
[2021-11-09 03:45] LABS: Add Urine Microscopic? YES
[2021-11-09] MEDS: SODIUM CHLORIDE 0.9% IV 1,000 ML 999 ML IV CONT (04:30)
[2021-11-09] MEDS: ONDANSETRON INJ 4 MG/2 ML VIAL IV PUSH (04:34)
[2021-11-09] MEDS: MORPHINE SULFATE (*CRX) 4 MG/ML INJ IV PUSH (04:35)
[2021-11-09 04:54] LABS: Basophils Absolute Auto 0.1 K/mm3 (0.0-0.1); Basophils Percent Auto 0.7 % (0.2-1.2); Eosinophils Absolute Auto 0.1 K/mm3 (0-0.3); Eosinophils Percent Auto 0.5 % (0-4.4); Hematocrit 40.8 % (37.0-47.0); Hemoglobin 13.7 g/dL (12.0-15.0); Immature Granulocyte Absolute 0.03 K/mm3 (0.00-0.031); Immature Granulocyte Percent A 0.3 % (0-0.5); Lymphocytes Absolute Auto 1.27 K/mm3 (0.9-3.2); Lymphocytes Percent Auto 11.9 % (18.3-44.2); Mean Corpuscular HGB Conc 33.6 g/dl (32-36); Mean Corpuscular Hemoglobin 29.5 pg (26-34); Mean Corpuscular Volume 87.9 fl (80-100); Mean Platelet Volume 10.2 fl (7.4-10.4); Monocytes Absolute Auto 0.6 K/mm3 (0.1-0.6); Monocytes Percent Auto 5.3 % (2.6-8.5); Neutrophils Absolute Auto 8.7 K/mm3 (1.3-6.7); Neutrophils Percent Auto 81.3 % (45.5-73.1); Platelet Count Result 215 k/mm3 (150-375); Red Blood Count 4.64 M/mm3 (4.2-5.4); Red Cell Distribution Width 12.1 % (11.5-14.5); White Blood Count 10.7 K/mm3 (4.5-10.0)
[2021-11-09 05:07] LABS: Alanine Aminotransferase 28 U/L (4-35); Albumin Level 4.6 g/dL (3.5-5.1); Alkaline Phosphatase 106 U/L (38-126); Anion Gap 12 mmol/L (8-16); Aspartate Amino Transferase 33 U/L (14-36); Bilirubin,Total 0.6 mg/dL (0.2-1.3); Blood Urea Nitrogen 15 mg/dL (7-17); Calcium 9.4 mg/dL (8.4-10.2); Carbon Dioxide 27 mmol/L (22-30); Chloride 101 mmol/L (98-107); Estimated CRCL calculation 71 ml/min; Estimated Glomerular Filt Rate > 60; Glucose 121 mg/dL (65-110); Lipase 72 U/L (23-300); Potassium 3.8 mmol/L (3.4-5.0); Sodium 140 mmol/L (137-145)
[2021-11-09 06:00] VITALS: BP 142/87; PULSE 60; RESP 16; O2SAT 98
[2021-11-09 07:00] VITALS: BP 147/90; PULSE 62; RESP 16; O2SAT 98
[2021-11-09] MEDS: KETOROLAC 15 MG/ML VIAL (*BKC) IV PUSH (07:05)
[2021-11-09 07:12] VITALS: BP 147/90; PULSE 60; RESP 18; O2SAT 99
== END 2021-11-09 07:16 | disposition home or self-care (01) ==
PROVIDERS: Emergency Provider Emergency Medicine; PCP Family Medicine
DX: O99.893 Other specified diseases and conditions complicating puerperium (principal); N13.2 Hydronephrosis with renal and ureteral calculous obstruction
CPT/HCPCS: 36415; 74176; 80053; 81001; 83690; 85025; 96361; 96374; 96375; 99284; J0131; J1885; J2270; J2405; J7030

== ENCOUNTER → 2021-11-30 09:50 | Outpatient (CLI) | payer BC, SELFPAY ==
--- NOTE | ~2021-11-30 | XR_ITS ---
EXAMINATION: XR abdomen/kub 1V DATE: 11/30/2021 10:34 INDICATION: Right ureteral stone. TECHNIQUE: A supine view of the abdomen on 2 radiographs was obtained. COMPARISON: CT abdomen and pelvis 11/09/2021 FINDINGS: There are no dilated loops of bowel. There is no visible urolithiasis. IMPRESSION: 1. No visible urolithiasis. Reviewed, dictated and finalized at [facility]. IMPRESSION: 1. No visible urolithiasis.
--- NOTE | ~2021-11-30 | US_ITS ---
EXAMINATION: US retroperitoneal comp DATE: 11/30/2021 10:06 INDICATION: Right ureteral stone TECHNIQUE: Multiple ultrasound grayscale images of the kidneys were obtained. COMPARISON: None. FINDINGS: The right kidney measures 11.8 x 4.7 x 5.5 cm. The left kidney measures 10.1 x 5.1 x 5.3 cm. The kidn eys demonstrate normal echogenicity. There is no hydronephrosis in either kidney. No stones identifi ed. The bladder is normal. IMPRESSION: 1. Normal kidneys without hydronephrosis. Reviewed, dictated and finalized at [facility].
== END ==
PROVIDERS: PCP Family Medicine; Visit Provider Nurse Practitioner Adult Health
DX: N20.2 Calculus of kidney with calculus of ureter (principal)
CPT/HCPCS: 74018; 76770

== ENCOUNTER → 2021-12-06 10:07 | Outpatient (CLI) | payer BC, SELFPAY ==
--- NOTE | ~2021-12-06 | XR_ITS ---
EXAMINATION: CT abdomen pelvis wo con, XR abdomen/kub 1V DATE: 12/06/2021 10:28 INDICATION: Right ureteral stone TECHNIQUE: 1. Computed tomography (CT) of the abdomen and pelvis was performed without intravenous contrast. Aut omated exposure control and iterative reconstruction technique were employed. The dose-length product was 432.42 mGy-cm. 2. Single AP view of the abdomen and pelvis was obtained on 2 overlapping radiographs. COMPARISON: CT dated 11/09/2021 FINDINGS: CT: Mild discoid atelectasis in the left lower lobe. Heart size is normal. No pericardial or pleural effu robbi. Liver, gallbladder, spleen, pancreas and bilateral adrenal glands are normal. Bilateral ureters are normal. No urolithiasis or hydronephrosis. Bowels including the appendix are normal. 2.1 cm left adnexal cyst. Bladder, anteverted uterus and right adnexa are normal. Scarring along the anterior pe lvic wall consistent with prior section. No free intraperitoneal gas or fluid. No pathologic ally enlarged abdominal or pelvic lymphadenopathy. Right supra-acetabular bone island. KUB: No suspicious calcifications in the abdomen or pelvis. Normal bowel gas pattern. Right supra-acetabul ar bone island. IMPRESSION: 1. Previously seen right ureteral stone has passed with no residual urolithiasis or hydronephrosis. Reviewed, dictated and finalized at [facility]. IMPRESSION: 1. Previously seen right ureteral stone has passed with no residual urolithiasi s or hydronephrosis.
== END ==
PROVIDERS: PCP Family Medicine; Visit Provider Nurse Practitioner Adult Health
DX: N20.1 Calculus of ureter (principal)
CPT/HCPCS: 74018; 74176

== ENCOUNTER 2023-06-22 10:43 | Emergency (ER) | payer OTHER, SELFPAY ==
[2023-06-22 11:08] VITALS: BP 127/82; PULSE 71; RESP 16; TEMP 36.8; O2SAT 100
--- NOTE | 2023-06-22 11:16 | ED.URI ---
HPI - URI/Sore Throat General Chief Complaint: Upper Respiratory Infection Stated Complaint: Sore Throat Time Seen by Provider: 06/22/23 11:17 History of Present Illness HPI Narrative: 33-year-old female presented for complaint of sore throat, body aches, and subjective fever. Onset this morning. States she saw white spots on her tonsils. She denies sick contacts. Take Tylenol prior to arrival. Related Data Allergies Allergy/AdvReac Type Severity Reaction Status Date / Time No Known Allergies Allergy Verified 11/09/21 02:30 Review of Systems Review of Systems: CONSTITUTIONAL: Reports body aches, fever EYES: Denies visual changes, redness, or discharge. ENT: reports sore throat Denies rhinorrhea, congestion, or otalgia. CARDIOVASCULAR: Denies chest pain, palpitations, or edema. RESPIRATORY: Denies dyspnea. GASTROINTESTINAL: Denies abdominal pain, nausea, vomiting, or diarrhea. SKIN: Denies rash, itching, or wounds. MUSCULOSKELETAL: Denies back pain, joint pain, or myalgia. NEUROLOGIC: Denies headache PMFSH Past Medical History Medical History Anxiety delivery delivered Overweight (BMI 25.0-29.9) Surgical History Surgical History History of delivery Family History Family History Father Hypertension Mother Hypertension Social History Social History Smoking status: Never smoker Alcohol intake: current Drinks per week: 2 Substance use: never Living arrangements: with family Spiritual care concerns: No Exam Narrative: GENERAL: mildly Ill-appearing, no acute distress. EYES: conjunctivae clear ENT: Mucous membranes moist. TM pearly anne with normal light reflex bilaterally; no tragal tenderness. Oropharynx erythematous Tonsils enlarged 2+ with exudate. No drooling, no hoarseness, no trismus, uvula midline. No tripod positioning, hot potato voice, or soft palate swelling. NECK: Supple. No lymphadenopathy CHEST: Clear to auscultation, breath sounds equal. No respiratory distress, speaks in full sentences. HEART: Regular rate and rhythm. No murmur heard. SKIN: Warm, dry, no rash. NEURO: Alert and oriented x3. Course Course Emergency Course: Patient is aware of diagnosis, understands and agrees to treatment plan. Anticipatory guidance given. Patient agrees to follow-up as directed and is aware of reasons to seek care at the emergency department. Portions of this record may have been created with voice recognition software Level of Care: Express Care Visit Vital Signs Vital signs: Vital Signs Temperature 98.2 F 06/22/23 11:08 Pulse Rate 71 06/22/23 11:08 Respiratory Rate 16 06/22/23 11:08 Blood Pressure 127/82 06/22/23 11:08 Pulse Oximetry 100 06/22/23 11:08 Oxygen Delivery Room Air 06/22/23 11:08 Temperature 98.2 F 06/22/23 11:08 Pulse Rate 71 06/22/23 11:08 Respiratory Rate 16 06/22/23 11:08 Blood Pressure 127/82 06/22/23 11:08 Pulse Oximetry 100 06/22/23 11:08 Oxygen Delivery Room Air 06/22/23 11:08 MDM - URI/Sore Throat MDM Narrative Medical decision making narrative: Neg strep result reviewed with pt; will treat based on PE and CC. Advise supportive treatments. Patient is appropriate for outpatient treatment and follow-up. Differential Diagnosis Differential diagnosis: Likely upper respiratory infection, viral infection and pharyngitis Discharge Plan Discharge Clinical Impression: Exudative tonsillitis Patient Disposition: Home, Self-Care Condition: Stable Instructions: Antibiotic Form, Strep Throat (ED) Additional Instructions: - Take the antibiotic as directed. Fever and sore throat typically resolve within one to three days. Most patients can return to wo
== END 2023-06-22 11:27 | disposition home or self-care (01) ==
PROVIDERS: Emergency Provider Nurse Practitioner Family; PCP Family Medicine
DX: J03.90 Acute tonsillitis, unspecified (principal)
CPT/HCPCS: 87081; 87880; 99213; G0463